=== PATIENT | male | born 1950 | race Caucasian/White ===

== ENCOUNTER → 2017-10-27 | Outpatient (CLI) | payer MEDICARE ==
--- NOTE | 2017-10-27 10:53 | XR ---
EXAMINATION TYPE: XR chest 2V DATE OF EXAM: 10/27/2017 COMPARISON: 03/18/2009 HISTORY: 67-year-old male chest pain on breathing TECHNIQUE: Frontal and lateral views FINDINGS: A metallic ring projects at the heart, probable annuloplasty ring. Heart upper limits of normal in si ze. Mild elongation thoracic aorta. Normal variant azygos fissure is noted. There is some partial kavita houetting at the dome of the right hemidiaphragm. No consolidation or pleural effusion. Some slight i rregularity to the contour of the midsternal body. IMPRESSION: 1. Slight irregularity to the mid sternal body on the lateral view. If there was a direct injury to t his location and pain localizes here, consider CT to exclude a subtle sternal fracture. 2. Minimal partial silhouetting of the right hemidiaphragm suggests adjacent atelectasis/infiltrate o r pulmonary contusion.
== END | disposition home or self-care (01) ==
LOC: RADXRMAIN 08:39
PROVIDERS: ATTEND Internal Medicine Geriatric Medicine
DX: R93.8 Abnormal findings on diagnostic imaging of other specified body structures (principal); R07.1 Chest pain on breathing
CPT/HCPCS: 71046

== ENCOUNTER → 2017-11-29 | Outpatient (CLI) | payer MEDICARE ==
--- NOTE | 2017-11-29 09:04 | XR ---
EXAMINATION TYPE: XR chest 2V DATE OF EXAM: 11/29/2017 COMPARISON: November 06 HISTORY: Shortness of breath TECHNIQUE: Frontal and lateral views of the chest are obtained. FINDINGS: Scattered senescent parenchymal changes noted. Hyperinflation compatible with COPD. No evidence for infiltrate. No evidence for atelectasis. Chronic elevation right hemidiaphragm with r ight basilar parenchymal scarring. Heart size is stable. Mediastinal structures are stable and grossly unremarkable. No evidence for hilar prominence. Degenerative changes dorsal spine. IMPRESSION: 1. No evidence for acute pulmonary disease.
== END | disposition home or self-care (01) ==
LOC: RADXRMAIN 08:21
PROVIDERS: ATTEND Internal Medicine Geriatric Medicine
DX: R06.02 Shortness of breath (principal)
CPT/HCPCS: 71046

== ENCOUNTER → 2024-10-04 | Outpatient (CLI) | payer MEDICARE ==
--- NOTE | 2024-10-04 16:45 | US ---
EXAMINATION TYPE: US groin LT DATE OF EXAM: 10/04/2024 COMPARISON: NONE CLINICAL INDICATION: Male, 74 years old with history of K40.90 UNIL INGUINAL HERNIA, W/O OBST OR GANG R, NO; Pt states he had open heart surgery 2 years ago with a left groin approach and has felt like i t never healed correctly. He states after he eats there is bulging in the left groin TECHNIQUE: Grayscale with or without color Doppler imaging of the area of hernia concern. Real-time scanning was performed by the onsite health coach utilizing Valsalva and additional dynamic maneuve rs to assess for hernia. FINDINGS: Optical Coating Technician notes: Assess for hernia at location of: Left inguinal canal There does appear to be movement and enlargement of bowel with valsalva. Assessment for the actual ab dominal wall defect is limited. IMPRESSION: Bowel movement and bulging at the left inguinal region with Valsalva. Findings suggest the presence o f a bowel containing inguinal hernia. If indicated, this can be further characterized with a CT perfo rmed without and with Valsalva. [facility], , 10/04/2024 4:42 PM
== END | disposition home or self-care (01) ==
LOC: RADUSWWP 16:11
PROVIDERS: ATTEND Internal Medicine Geriatric Medicine
DX: K40.90 Unilateral inguinal hernia, without obstruction or gangrene, not specified as recurrent (principal)